=== PATIENT | male | born 1940 | race Caucasian/White ===

== ENCOUNTER 2018-11-09 17:21 | Emergency (ER) | payer MEDICARE ==
[~2018-11-09] VITALS: Ht 172.7 cm; Wt 80.7 kg
[~2018-11-09 17:21] MED LIST: ASPI-630; ATEN25TA PO; CRESTOR10 MG; DOCU-109 PO; FLAX10003 PO; GLUC1CAP48 PO; HYDR-2145 PO; MULT1TAB52 PO; OMEG1CAP6 PO; ONDA4TAB10 SL; OXYC1TAB15 PO; TRAM-48 PO; UBID50TA PO
[2018-11-09] MEDS ORDERED: LIDOCAINE 1%/EPI 1:100,000 20 ML VIAL. INJ ONE (17:45)
[2018-11-09] MEDS ORDERED: DIPHTH,PERTUSS(ACELL),TET TOX 0.5 ML DISP.SYRIN. VAX IM ONE (17:45)
[2018-11-09] MEDS ORDERED: NEOMY/BACITR/POLYMYXIN OINT PACKET. TP ONE (17:45)
[2018-11-09] MEDS ORDERED: AMOX1TAB61 PO (18:54)
[2018-11-09] MEDS ORDERED: TRAM50TA PO (18:54)
--- NOTE | 2018-11-09 18:55 | PHYS DOC ---
Past Medical History Past Medical History: Hypertension Past Surgical History: No Surgical History Additional Information: Nonsmoker Alcohol Use: None Drug Use: None Adult General Chief Complaint Chief Complaint: FINGER INJURY HPI HPI 77-year-old male presents with his family with report of accidentally getting his left pinky finger caught between 2 large concrete slabs while working outside on his daughter's deck at approximately 1700. Patient reports he was wearing work clothes. Reports after his finger got stuck between the slabs he suddenly pulled them up causing skin to the palmar surface of his left pinky finger to "tear off". Patient reports last tetanus booster was greater than 5 years ago. Patient reports significant bleeding to area. Denies use of blood thinners. Denies other injury. Denies taking any medication prior to arrival to ED. Reports significant sensitivity to pain medications. Reports he can only have Tramadol or over the counter Tylenol and Ibuprofen. Review of Systems Review of Systems Constitutional: Denies fever or chills Musculoskeletal: Left pinky finger pain and laceration to distal palmar surface Integument: Left pinky finger skin avulsion/laceration Neurologic: Denies headache, focal weakness or sensory changes Complete systems were reviewed and found to be within normal limits, except as documented in this note. Current Medications Current Medications Current Medications Medications (Trade) Dose Ordered Sig/[facility] Start Time Stop Time Status Last Admin Dose Admin Acetaminophen (Tylenol) 325 mg 1X ONCE 11/09/18 19:15 11/09/18 19:13 DC 11/09/18 19:08 325 MG Cefazolin Sodium/ Dextrose 50 ml @ 100 mls/hr 1X ONCE 11/09/18 17:45 11/09/18 18:14 DC 11/09/18 17:49 100 MLS/HR Diphtheria/ Tetanus/Acell Pertussis (Boostrix) 0.5 ml ONCE ONCE 11/09/18 17:45 11/09/18 17:46 DC 11/09/18 17:57 0.5 ML Lidocaine/ Epinephrine (LIDOCAINE 1%-EPI 1:100,000 Multi-Dose) 20 ml 1X ONCE 11/09/18 17:45 11/09/18 17:46 DC 11/09/18 17:57 20 ML Neomycin/ Polymyxin/ Bacitracin (Triple Antibiotic Ointment) 1 pkt 1X ONCE 11/09/18 17:45 11/09/18 17:46 DC 11/09/18 17:57 1 PKT Tramadol HCl (Ultram) 25 mg 1X ONCE 11/09/18 19:15 11/09/18 19:13 DC 11/09/18 19:08 25 MG Allergies Allergies Allergies Coded Allergies Type Severity Reaction Last Updated Verified No Known Drug Allergies 10/11/13 No Physical Exam Physical Exam Constitutional: Well developed, well nourished, uncomfortable, non-toxic appearance HENT: Normocephalic, atraumatic, oropharynx moist Eyes: Conjunctiva normal, no discharge Neck: Normal range of motion, no tenderness, supple Cardiovascular: Heart rate normal, regular rhythm Lungs & Thorax: Bilateral breath sounds clear to auscultation, no wheezing Skin: Warm, dry, no erythema, no rash, avulsion of palmar surface of distal left 5th finger Extremities: Avulsion of palmar fat pad of left 5th finger, no nail involvment, Tendon function intact, CR < 2 sec, sensation intact, Left radial pulse +2, No obvious deformity, distal tip pain with palpation in addition to ROM concerning for tuft fracture. Neurologic: Alert and oriented X 3, no focal deficits noted Psychologic: Affect normal, judgement normal Current Patient Data Vital Signs Vital Signs Date Time Temp Pulse Resp B/P (MAP) Pulse Ox O2 Delivery O2 Flow Rate FiO2 11/09/18 19:00 60 18 157/72 (100) 99 Room Air 11/09/18 17:27 98.3 98.3 EKG EKG [] Radiology/Procedures Radiology/Procedures PROCEDURE: FINGER(S) LEFT Exam: Radiographs of finger INDICATION: Crush injury TECHNIQUE: Frontal view of the hand with oblique and lateral views of the fifth digit Comparisons: None FINDINGS: Moderately displaced fracture at the distal tuft of the fifth digit. Soft tissue irregularity at the area of fracture likely represents laceration. No other fractures are seen. IMPRESSION: Moderately displaced likely open fracture of the distal tuft of the fifth digit. Electronically signed by: Sean Mendoza MD (11/09/2018 8:38 PM) [facility] Course & Med Decision Making Course & Med Decision Making Pertinent Imaging studies reviewed. (See chart for details) Patient presents with history of present illness and physical exam consistent for fingertip avulsion of left pinky finger. Concern for open tuft fracture. Empiric antibiotic given. Tetanus updated. Digital block performed for pain control. X-ray confirmed tuft fracture. Wound copiously irrigated and dressed with splint applied. Discussed case with Dr. Edge (orthopedics) for close follow up in office. Patient given dose of tramadol with tylenol prior to discharge for further pain control prior to block wearing off. Patient stable for discharge with outpatient follow-up with PCP/Orthopedics. Discussed findings and plan with patient and family, who acknowledge understanding and agreement. Dragon Disclaimer Dragon Disclaimer This electronic medical record was generated, in whole or in part, using a voice recognition dictation system. Splinting Splinting : Location: Left 5th finger Pre-Made Type: metal (finger splint) Pre-Proc Neuro Vasc Exam: normal Post-Proc Neuro Vasc Exam: normal, unchanged from pre-exam Additional Procedures Progress Digital Block of left 5th finger and irrigation/dressing of finger avulsion: Verbal consent obtained. Time out performed. Hand hygiene utilized. Wound cleaned with ChloraPrep. Anesthesia obtained via a 25-gauge hypodermic needle with (2) mL's of lidocaine 2% with epinephrine to base of left 5th finger to perform 4 nerve block. Anesthesia tested before performing copious irrigation. Wound unable to approximate. No foreign body noted. Wound dressed with sterile xeroform gauze and kerlex. Patient tolerated procedure well and without difficulty. Departure Departure Impression: Primary Impression: Open fracture of tuft of distal phalanx of finger Additional Impression: Finger avulsion Disposition: 01 HOME, SELF-CARE Condition: STABLE Referrals: OZZY PADGETT MD (PCP) JYOTSNA EDGE II, MD Patient Instructions: Crush Injury, Fingers or Toes, [id number], Finger Avulsion Additional Instructions: Do not soak your wound. You may shower. Clean wound daily with soap and water. Change dressing 2 times daily. Use over the counter antibiotic ointment with each dressing change. Use the yelllow petroleum based dressing first. DO NOT OVER USE YOUR HAND. YOU MUST REST IT. Scripts Amoxicillin/Potassium Clav (AUGMENTIN 875-125 TABLET) 1 Each Tablet 1 TAB PO BID, #14 TAB Prov: JAI NEGRON DO 11/09/18 Tramadol Hcl (TRAMADOL HCL) 50 Mg Tablet 0.5-1 TAB PO Q6HRS PRN for PAIN, #14 TAB Take each tab with one (1) regular strength Tylenol 325mg Prov: JAI NEGRON DO 11/09/18 Problem Qualifiers Additional Impression: Finger avulsion Encounter type: initial encounter Qualified Codes: S61.209A - Unspecified open wound of unspecified finger without damage to nail, initial encounter JAI NEGRON DO Nov 09, 2018 18:55
[2018-11-09 19:00] VITALS: BP 157/72
[2018-11-09] MEDS ORDERED: traMADol 50 MG TABLET PO ONE (19:15)
[2018-11-09] MEDS ORDERED: ACETAMINOPHEN 325 MG TABLET. PO ONE (19:15)
--- NOTE | 2018-11-09 20:41 | RAD ---
Exam: Radiographs of finger INDICATION: Crush injury TECHNIQUE: Frontal view of the hand with oblique and lateral views of the fifth digit Comparisons: None FINDINGS: Moderately displaced fracture at the distal tuft of the fifth digit. Soft tissue irregularity at the area of fracture likely represents laceration. No other fractures are seen. IMPRESSION: Moderately displaced likely open fracture of the distal tuft of the fifth digit. Electronically signed by: Sean Mendoza MD (11/09/2018 8:38 PM) [facility]
== END 2018-11-09 19:11 | disposition home or self-care (01) ==
LOC: ER 17:21
DX: S62.637B Displaced fracture of distal phalanx of left little finger, initial encounter for open fracture (principal); I10 Essential (primary) hypertension; W23.0XXA Caught, crushed, jammed, or pinched between moving objects, initial encounter; Y93.89 Activity, other specified; Y92.89 Other specified places as the place of occurrence of the external cause; Y99.8 Other external cause status
CPT/HCPCS: 29130; 64450; 73140; 90471; 90715; 96365; 99285; J0696; J3490

== ENCOUNTER → 2021-04-13 | Outpatient (CLI) | payer MEDICARE ==
[~2021-04-13] MED LIST changes: +AMOX1TAB61 PO; +MULT-445 PO; -MULT1TAB52 PO; +TRAM50TA PO
--- NOTE | 2021-04-13 13:09 | KCIC ---
EXAMINATION: MRI LEFT SHOULDER WITHOUT IV CONTRAST CLINICAL HISTORY: Progressive left shoulder pain and limited range of motion, history of prior RTC re pair 2002. TECHNIQUE: Multiplanar multisequential images obtained through the shoulder without intravenous contr ast. COMPARISON: Left shoulder radiographs 11/25/2020, MRI left shoulder 04/08/2015 FINDINGS: Scattered punctate foci of susceptibility artifact most notably along the superior shoulder, related to prior surgery. TENDONS: - Supraspinatus: Marked thinning of the posterior half of the tendon without definite full-thickness tear. - Infraspinatus: Thickening and high-grade articular sided fraying involving nearly the full width of the tendon. No definite full-thickness tear. - Subscapularis: Within normal limits. - Teres Minor: Within normal limits. - Biceps Tendon: Biceps tenodesis with tendon anchor distal to the intertubercular groove. MUSCLES: Muscle bulk and signal intensity are within normal limits. LABRUM: Degenerative tearing in the superior labrum. GLENOHUMERAL JOINT: - Joint Fluid: No significant joint effusion. - Cartilage: Multifocal partial-thickness chondral loss in the humeral head and glenoid. ACROMIOCLAVICULAR JOINT: Mild to moderate hypertrophic degenerative changes. BONES/MARROW: No evidence of acute fracture or suspicious marrow replacing process. OTHER: Mild thickening and fluid in the subacromial/subdeltoid bursa. IMPRESSION: Thinning of the supraspinatus and infraspinatus tendons with high-grade partial-thickness fraying in the infraspinatus tendon. No definite full-thickness rotator cuff tear. Biceps tenodesis. Electronically signed by: Alfredo Schmidt DO (04/13/2021 1:06 PM) [facility]
== END ==
LOC: KCIC MRI 10:38
PROVIDERS: ATTEND Orthopaedic Surgery
DX: M19.012 Primary osteoarthritis, left shoulder (principal); M75.22 Bicipital tendinitis, left shoulder; M75.102 Unspecified rotator cuff tear or rupture of left shoulder, not specified as traumatic; M25.812 Other specified joint disorders, left shoulder
CPT/HCPCS: 73221